=== PATIENT | male | born 1950 | race Caucasian/White ===

== ENCOUNTER 2020-10-25 01:28 | Emergency (ER) | payer MEDICARE, OTHER ==
[~2020-10-25] VITALS: Ht 175.3 cm; Wt 75.0 kg
--- NOTE | 2020-10-25 01:41 | NUR ---
EKG on arrival, pt has no cp now. On monitor shows a fib, controlled rate. Pt has periumbilical hernia, right foot great toe amputation 2nd diabetes. RR equal and unlabored. IV field patent. Took asa [address] Crabtree at bedside. Call funez, low bed, rails. AIDET provided.
--- NOTE | 2020-10-25 01:45 | NUR ---
No pain now, morphine held. Will continue to monitor.
[2020-10-25] MEDS ORDERED: MORPHINE SULFATE 4 MG/ML, 1ML IVPush PRN (02:00)
[2020-10-25] MEDS ORDERED: PLEASE ENTER ALLERGIES MC SCH (02:00)
[2020-10-25] MEDS ORDERED: SODIUM CHLORIDE FLUSH 10ML SYR IVF ONE (02:00)
[2020-10-25] MEDS ORDERED: ONDANSETRON 2MG/ML, 2ML IVPush ONE (02:00)
[2020-10-25 02:34] LABS: BASOPHILS % (AUTO) 1 % (0-1); EOSINOPHILS % (AUTO) 4 % (1-7); LYMPHOCYTES % (AUTO) 47 % (22-44); MEAN CORPUSCULAR HEMOGLOBIN 29.6 pg (27.5-34.5); MEAN CORPUSCULAR HGB CONC 34.2 g/dL (33.2-36.2); MEAN PLATELET VOLUME 7.7 fL (7.4-10.4); MONOCYTES % (AUTO) 6 % (2-9); NEUTROPHILS % (AUTO) 42 % (42-75); PLATELET COUNT 137 x10^3/uL (130-400); RED BLOOD COUNT 4.98 x10^6/uL (4.38-5.82); RED CELL DISTRIBUTION WIDTH 13.9 % (9.4-14.8)
[2020-10-25 02:35] LABS: MD NO
[2020-10-25 02:43] LABS: ALANINE AMINOTRANSFERASE 23 U/L (12-78); ALBUMIN 3.3 g/dL (3.4-5.0); ANION GAP 5 mmol/L (5-15); CALCIUM 9.2 mg/dL (8.5-10.1); CHLORIDE 111 mmol/L (98-107)
[2020-10-25 02:47] LABS: ALKALINE PHOSPHATASE 39 U/L (45-117); BILIRUBIN,TOTAL 0.5 mg/dL (0.2-1.0); TOTAL PROTEIN 6.6 g/dL (6.4-8.2); TROPONIN I < 0.015 ng/mL (0.000-0.045)
[2020-10-25 02:56] LABS: D-DIMER 0.25 ug/mlFEU (0.00-0.52); INTERNATIONAL NORMALIZED RATIO 2.28 (0.93-1.1)
[2020-10-25 03:10] VITALS: BP 124/55
--- NOTE | 2020-10-25 03:11 | NUR ---
Remains CP free, morphine/zofran held. VSS. Will continue to monitor. AIDET provided.
== END 2020-10-25 03:44 | disposition home or self-care (01) ==
LOC: ED 03:30
DX: R07.2 Precordial pain (principal); R94.4 Abnormal results of kidney function studies
CPT/HCPCS: 36415; 71045; 76700; 80053; 83690; 84484; 85025; 85379; 85610; 85730; 93005; 99285